=== PATIENT | female | born 2000 | race African-American/Black ===

== ENCOUNTER 2021-09-17 10:56 | Emergency (ER) | payer OTHER ==
[~2021-09-17] VITALS: Ht 175.3 cm; Wt 80.6 kg
[2021-09-17] MEDS ORDERED: OMEGCAP9 PO (11:05)
[2021-09-17] MEDS ORDERED: VITA500C24 PO (11:05)
[2021-09-17] MEDS ORDERED: FERR325T82 PO (11:05)
[2021-09-17 13:54] VITALS: BP 131/79
[2021-09-17 14:14] LABS: RSV AMPLIFICATION NEGATIVE (NEGATIVE)
[2021-09-17 14:56] LABS: BASO % 0.3 % (0.0-1.0); EOS % 0.6 % (0.0-3.0); HEMATOCRIT 38.2 % (36.0-47.0); HEMOGLOBIN 12.2 g/dl (12.0-15.5); LYMPH # 0.7 10^3/uL (1.5-5.0); LYMPH % 19.2 % (24.0-44.0); MEAN CORPUSCULAR HEMOGLOBIN 28.8 pg (27.0-33.0); MEAN CORPUSCULAR HGB CONC 31.9 g/dl (32.0-36.5); MEAN CORPUSCULAR VOLUME 90.3 fl (80.0-96.0); MONO # 0.8 10^3/uL (0.0-0.8); MONO % 22.8 % (2.0-8.0); NEUTROPHILS # 1.9 10^3/uL (1.5-8.5); NEUTROPHILS % 56.8 % (36.0-66.0); PLATELET COUNT, AUTOMATED 237 10^3/uL (150-450); RED BLOOD COUNT 4.23 10^6/uL (4.00-5.40); WHITE BLOOD COUNT 3.4 10^3/uL (4.0-10.0)
[2021-09-17 15:32] LABS: ALT/SGPT 21 U/L (12-78); BILIRUBIN,TOTAL 0.2 MG/DL (0.2-1.0); BLOOD UREA NITROGEN 8 MG/DL (7-18); CALCIUM LEVEL 9.1 MG/DL (8.5-10.1); CARBON DIOXIDE LEVEL 27 MEQ/L (21-32); CHLORIDE LEVEL 104 MEQ/L (98-107); CREATININE FOR GFR 1.01 MG/DL (0.55-1.30); GLOMERULAR FILTRATION RATE > 60.0 (>60); GLUCOSE, FASTING 88 MG/DL (70-100); POTASSIUM SERUM 3.8 MEQ/L (3.5-5.1); SODIUM LEVEL 135 MEQ/L (136-145); TOTAL PROTEIN 8.2 GM/DL (6.4-8.2)
[2021-09-17] MEDS ORDERED: ACETAMINOPHEN 325 MG TAB PO ONE (15:50)
[2021-09-17] MEDS ORDERED: ISOVUE-370 76% 100ML VIAL As Ordered ONE (15:52)
== END 2021-09-17 18:03 | disposition home or self-care (01) ==
LOC: M ED 10:56
DX: R50.9 Fever, unspecified (principal); R05.9 Cough, unspecified; R52 Pain, unspecified; U07.1 COVID-19; Z91.018 Allergy to other foods
CPT/HCPCS: 36415; 71045; 71275; 80053; 85025; 85379; 87631; 99284; Q9967